=== PATIENT | female | born 1985 ===

== ENCOUNTER → 2017-05-16 | Day surgery (SDC) | payer OTHER ==
[~2017-05-16] VITALS: Ht 167.6 cm; Wt 104.3 kg
[~2017-05-16] MED LIST: MULTIVITAMINS1 EAC9 PO; NUVARING VAGIN1 EACH VG
--- NOTE | 2017-05-16 10:58 | Operative Report ---
Operative/Inv Procedure Report Surgery Date: 05/16/17 Name of Procedure: left ureteroscopy with laser lithotripsy stone extraction and stent placement possible retropyelogram Pre-Operative Diagnosis: Left ureteral stones with renal colic Post-Operative Diagnosis: Same Estimated Blood Loss: stacey Surgeon/Clinical Nurse Specialist: Sandra Thornton MD Anesthesia: laryngeal mask airway Drains: 6 x 24 cm ureteral stent Specimens: Stone fragments Complications: None Condition: Stable Operative Indication: Left renal colic with ureteral stones Operative/Procedure Note Note: 31-year-old female with a history of left renal colic found to have ureteral stones at the ER. She was given pain medicine and IV fluids but no stones the past. She had excruciating renal colic intermittently with nausea and vomiting. Her anatomy was reviewed in-house stones can get obstructed in different parts of the urologic anatomy. Given the pain that she's had she was given the risks benefits and alternatives of surgical treatment with ureteroscopy. It was explained that extracorporeal shockwave lithotripsy was not is beneficial given the location of the stones. She was given the option of watchful waiting for over the weekend and if she did not pass that she could have surgery today. She wished to proceed and labs were taken and consent was signed. All questions were answered. Patient was identified in the holding area and brought to the operating placed on the operating table in supine position. Timeout was performed and IV antibodies were infused. LMA anesthesia was induced. She was placed in the dorsal lithotomy position and prepped and draped in the standard sterile fashion. Cystoscopy was performed and the bladder was globally inspected. There was no lesions masses or trabeculation. The ureteral orifices were easily identified. The left ureteral orifice was cannulated with a sensor guidewire. This was followed by the dual-lumen catheter used to place the second superstiff wire. The superstiff wire was then clamped as the safety wire. The sensor wire was used to place the semirigid ureteroscope up the ureter with fluoroscopic guidance. Once inside the ureter to yellow crystalline stones were seen in the mid ureter. One was larger than the other approximate 7 mm. This was lasered with a 273 laser fiber. The settings were 8 J and 8 frequency. The larger stone was fragmented. The 0 tip basket was then used to remove the fragments in total with several passes. These were sent off to pathology for stone analysis. The semirigid ureteroscope was used to go up to the UPJ and the ureter was examined in its entirety while removing the scope and no other stones were seen. The stones were seen in the renal pelvis on fluoroscopic view. This ureteroscope was removed and the cystoscope was used to place a 6 x 24 cm ureteral stent using the safety wire. The stent was seen to be in good position fluoroscopically. The wire was removed and the stent was with pigtail in the renal pelvis and one in the bladder. The bladder was emptied. Patient was cleaned of the Betadine solution. She tolerated the procedure well. Findings: To left mid ureteral stones yellow in color and jagged. Discharge Disposition: PACU
--- NOTE | 2017-05-17 12:07 | RADIOLOGY REPORT ---
EXAMINATION: XR ABDOMEN CLINICAL INDICATION: Left ureteroscopy with laser and stent placement for Dr. Thornton. COMPARISON: None TECHNIQUE: Intraoperative fluoroscopic spot views were provided to Dr. Thornton in the operating room. TOTAL NUMBER OF IMAGES: 4 FLUOROSCOPY TIME: 0.1 minutes FINDINGS: A ureteroscope is identified on the left with a wire extending into the left urinary collecting system, presumably coiling within the renal pelvis. A final image demonstrates the superior end of an internal ureteral stent. IMPRESSION: Left internal ureteral stent placement. Refer to operative notes for details.
== END ==
LOC: STS 01:56
DX: N20.2 Calculus of kidney with calculus of ureter (principal); R10.9 Unspecified abdominal pain
CPT/HCPCS: 74018; 81025; C2617; J0131; J0690; J2250